=== PATIENT | female | born 1995 | race Hispanic/Latino ===

== ENCOUNTER → 2021-08-22 | Outpatient (CLI) | payer OTHER ==
[2021-08-22 12:23] VITALS: BP 130/86
[2021-08-22] MEDS: BAMLANIVIMAB (EUA) 700 MG, ETESEVIMAB (EUA) 1,400 MG in NS 50ML 50 ML IV ONE (12:37)
[2021-08-22 13:08] VITALS: BP 106/68
[2021-08-22 14:11] VITALS: BP 118/70
== END | disposition home or self-care (01) ==
LOC: OPTX 11:59
PROVIDERS: ATTEND Nurse Practitioner Family
DX: U07.1 COVID-19 (principal)
CPT/HCPCS: M0245; Q0245; Q0239